=== PATIENT | female | born 1950 | race Caucasian/White ===

== ENCOUNTER → 2018-09-01 | Day surgery (SDC) | payer OTHER ==
[~2018-09-01] MED LIST: AMOX1TAB5 PO; IBUPROFEN600 MG PO; M.V.I. ADULT10 ML PO; METOPROLOL ER-1 EAC1 PO; PROBIOTIC1 EAC1 PO; SYNTHROID88 MCG PO
== END | disposition home or self-care (01) ==
LOC: ADM 08-27 07:15 → CIR.AMB 07:15
DX: R93.89 Abnormal findings on diagnostic imaging of other specified body structures (principal)